=== PATIENT | female | born 1970 | race American Indian/Alaskan Native ===

== ENCOUNTER 2016-11-07 15:12 | Emergency (ER) | payer OTHER ==
[2016-11-07 15:29] VITALS: BP 156/82; PULSE 86; RESP 18; TEMP 98.3; O2SAT 100
--- NOTE | 2016-11-07 16:31 | ED PDOC ---
Upper Extremity Pain/Injury Time Seen by Provider: 11/07/16 16:22 Chief Complaint (Nursing): Upper Extremity Problem/Injury Chief Complaint (Provider): left UE History Per: Patient History/Exam Limitations: no limitations Additional Complaint(s): 46yo F in left sided arm pain x 1 week states she feels tingling sensation to arm made worse with ROM and with tingling sensation to hand made worse with moving the hand. pt denies acute injury, denies CP, SOB, back pain, denies dizziness. Past Medical History Reviewed: Historical Data, Nursing Documentation, Vital Signs Vital Signs: Last Vital Signs Temp 98.3 F 11/07/16 15:27 Pulse 86 11/07/16 15:27 Resp 18 11/07/16 15:27 BP 156/82 H 11/07/16 15:27 Pulse Ox 100 11/07/16 15:27 - Medical History PMH: Arthritis (knee), Diabetes, Chronic Pain (right knee for about 3 years) - Surgical History Surgical History: (x 2) - Family History Family History: States: No Known Family Hx - Home Medications Home Medications: Ambulatory Orders Medication Instructions Recorded Naproxen [Naprosyn] 500 mg PO Q12H #20 tab 03/24/15 Oxycodone HCl/Acetaminophen 1 tab PO Q8H #10 tab 03/24/15 [Percocet 325 mg-5 mg] Albuterol HFA [Ventolin HFA 90 2 puff IH Q4 PRN #1 inh 06/14/16 mcg/actuation (8 g)] Promethazine/Codeine 5 ml PO Q6 PRN #100 ml 06/14/16 [Phenergan/Codeine Oral Syrup] Azithromycin [Zithromax] 1 tab PO DAILY #6 tab 06/15/16 Cyclobenzaprine [Cyclobenzaprine 10 mg PO BID #14 tab 11/07/16 HCl] Ibuprofen [Motrin] 400 mg PO Q6 #30 tab 11/07/16 - Allergies Allergies/Adverse Reactions: Allergies Allergy/AdvReac Type Severity Reaction Status Date / Time No Known Allergies Allergy Verified 11/07/16 15:25 Review of Systems ROS Statement: Except As Marked, All Systems Reviewed And Found Negative Respiratory: Negative for: Cough, Shortness of Breath Gastrointestinal: Negative for: Nausea, Vomiting, Abdominal Pain Musculoskeletal: Positive for: Arm Pain, Hand Pain Physical Exam - Reviewed Nursing Documentation Reviewed: Yes Vital Signs Reviewed: Yes - Physical Exam Appears: Positive for: Well, Non-toxic, No Acute Distress Head Exam: Positive for: ATRAUMATIC, NORMAL INSPECTION, NORMOCEPHALIC Skin: Positive for: Normal Color, Warm, DRY Cardiovascular/Chest: Positive for: Regular Rate, Rhythm Respiratory: Positive for: CNT, Normal Breath Sounds Extremity: Positive for: Other (left arm: no AC joint tenderness neurovasc intact. FROM, negative spurlings test. good strength to UE. ) Neurologic/Psych: Positive for: Alert, Oriented - ECG O2 Sat by Pulse Oximetry: 100 Medical Decision Making Medical Decision Making: pt will be required to f/u with orthopedics surgeon for imaging pt Rx flexril and motrin and given sling and wrist splint for comfort. Disposition - Clinical Impression Clinical Impression: Arm pain - Patient ED Disposition Is Patient to be Admitted: No Counseled Patient/Family Regarding: Studies Performed, Diagnosis, Need For Followup, Rx Given - Disposition Disposition: Routine/Home Disposition Time: 16:35 Condition: STABLE Prescriptions: Cyclobenzaprine [Cyclobenzaprine HCl] 10 mg PO BID #14 tab Ibuprofen [Motrin] 400 mg PO Q6 #30 tab Instructions: Neck Exercises (GEN), Peripheral Neuropathy (ED)
--- NOTE | 2016-11-09 16:41 | CARD ---
APPROVED REPORT EKG Measurement Heart [id number] <Conclusion> Normal sinus rhythm Normal ECG
== END 2016-11-07 17:28 | disposition home or self-care (01) ==
LOC: H.ER 15:12
DX: M79.602 Pain in left arm (principal); G89.29 Other chronic pain; E11.9 Type 2 diabetes mellitus without complications; R20.2 Paresthesia of skin

== ENCOUNTER 2016-11-27 16:08 | Inpatient (IN) | payer OTHER ==
[2016-11-27] MEDS ORDERED: Sodium Chloride 0.9% 1,000 ML IV ONE (17:16)
--- NOTE | 2016-11-27 17:43 | RAD ---
HISTORY: cp COMPARISON: Comparison chest 06/14/2016. TECHNIQUE: Chest PA and lateral FINDINGS: LUNGS: No active pulmonary disease. PLEURA: No significant pleural effusion identified. No pneumothorax apparent. CARDIOVASCULAR: Normal. OSSEOUS STRUCTURES: Mild dextroscoliosis of the thoracic spine VISUALIZED UPPER ABDOMEN: Normal. OTHER FINDINGS: None. IMPRESSION: No active disease.
--- NOTE | 2016-11-27 17:50 | ED PDOC ---
HPI: Chest Pain Time Seen by Provider: 11/27/16 16:45 Chief Complaint (Nursing): Chest Pain History Per: Patient History/Exam Limitations: no limitations Onset/Duration Of Symptoms: Days (3), Gradual Severity: Mild Front/Back of Body, Lg (Color): 1 - pain Quality: Sharp Associated Symptoms: denies: Nausea, Dyspnea, Diaphoresis, Syncope Modifying Factors: None Exacerbating Factors: Deep Breathing Alleviating Factors: None Past Medical History Reviewed: Historical Data, Nursing Documentation, Vital Signs Vital Signs: Last Vital Signs Temp 99.8 F H 11/27/16 16:27 Pulse 118 H 11/27/16 16:27 Resp 18 11/27/16 16:27 BP 140/70 11/27/16 16:27 Pulse Ox 96 11/27/16 17:50 - Medical History PMH: Arthritis (knee), Diabetes, Chronic Pain (right knee for about 3 years) - Surgical History Surgical History: (x 2) - Family History Family History: States: Unknown Family Hx - Living Arrangements Living Arrangements: With Family - Social History Current smoker - smoking cessation education provided: No - Home Medications Home Medications: Ambulatory Orders Medication Instructions Recorded Naproxen [Naprosyn] 500 mg PO Q12H #20 tab 03/24/15 Oxycodone HCl/Acetaminophen 1 tab PO Q8H #10 tab 03/24/15 [Percocet 325 mg-5 mg] Albuterol HFA [Ventolin HFA 90 2 puff IH Q4 PRN #1 inh 06/14/16 mcg/actuation (8 g)] Promethazine/Codeine 5 ml PO Q6 PRN #100 ml 06/14/16 [Phenergan/Codeine Oral Syrup] Azithromycin [Zithromax] 1 tab PO DAILY #6 tab 06/15/16 Cyclobenzaprine [Cyclobenzaprine 10 mg PO BID #14 tab 11/07/16 HCl] Ibuprofen [Motrin] 400 mg PO Q6 #30 tab 11/07/16 - Allergies Allergies/Adverse Reactions: Allergies Allergy/AdvReac Type Severity Reaction Status Date / Time No Known Allergies Allergy Verified 11/27/16 16:26 Review of Systems ROS Statement: Except As Marked, All Systems Reviewed And Found Negative Constitutional: Negative for: Fever, Chills Cardiovascular: Positive for: Chest Pain. Negative for: Palpitations, Paroxysmal Noc. Dyspnea, Edema, Light Headedness Respiratory: Positive for: Pleuritic Pain. Negative for: Cough, Shortness of Breath, SOB with Exertion, Wheezing Gastrointestinal: Negative for: Nausea, Vomiting, Abdominal Pain, Diarrhea Genitourinary Female: Negative for: Dysuria, Frequency Neurological: Negative for: Weakness, Numbness Physical Exam - Reviewed Nursing Documentation Reviewed: Yes Vital Signs Reviewed: Yes - Physical Exam Appears: Positive for: Well, No Acute Distress Head Exam: Positive for: ATRAUMATIC, NORMAL INSPECTION, NORMOCEPHALIC Eye Exam: Positive for: Normal appearance, EOMI, PERRL Neck: Positive for: Normal, Painless ROM, Supple Cardiovascular/Chest: Positive for: Regular Rate, Rhythm. Negative for: Edema, Gallop Respiratory: Positive for: Normal Breath Sounds Gastrointestinal/Abdominal: Positive for: Normal Exam, Bowel Sounds, Soft. Negative for: Tenderness Back: Positive for: Normal Inspection. Negative for: L CVA Tenderness, R CVA Tenderness Extremity: Positive for: Normal ROM. 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 Negative for: Motor/Sensory Deficits - Laboratory Results Result Diagrams: 11/27/16 18:00 11/27/16 18:00 - ECG ECG: Positive for: Interpreted By Ut ECG Rhythm: Positive for: Normal QRS, Normal ST Segment, Sinus Tachycardia (113) , ST/T Changes Interpretation Of Abn EKG: rate of 113 no evidence of ischemia O2 Sat by Pulse Oximetry: 96 Pulse Ox Interpretation: Normal - Radiology X-Ray: Interpreted by Me X-Ray Interpretation: No Acute Disease Disposition - Clinical Impression Clinical Impression: Chest pain - Patient ED Disposition Is Patient to be Admitted: Transfer of Care - Disposition Disposition Time: 19:04 Condition: STABLE Patient Signed Over To: Fozia Woodson
[2016-11-27 18:13] LABS: BASO % 0.6 % (0.0-2.0); EOS # 0.1 K/uL (0.0-0.7); EOS % 1.3 % (0.0-4.0); HEMATOCRIT 40.6 % (34.0-47.0); LYMPH % 11.7 % (20.0-40.0); MEAN CELL VOLUME 93.1 fl (81.0-99.0); MEAN CORPUSCULAR HEMOGLOBIN 31.3 pg (27.0-31.0); MEAN CORPUSCULAR HGB CONC 33.6 g/dL (33.0-37.0); MONO # 0.7 K/uL (0.0-0.8); MONO % 8.1 % (0.0-10.0); NEUT # 6.7 K/uL (1.8-7.0); NEUT % 78.3 % (50.0-75.0); RED CELL DISTRIBUTION WIDTH 13.7 % (11.5-14.5); WHITE BLOOD COUNT 8.6 K/uL (4.8-10.8)
[2016-11-27 18:23] LABS: ALB/GLOB RATIO 1.2 (1.0-2.1); ALKALINE PHOSPHATASE 72 U/L (38-126); ALT/SGPT 46 U/L (9-52); AST/SGOT 33 U/L (14-36); BILIRUBIN,TOTAL 0.9 mg/dl (0.2-1.3); BLOOD UREA NITROGEN 11 mg/dl (7-17); CALCIUM 9.2 mg/dL (8.4-10.2); CARBON DIOXIDE 26 mmol/L (22-30); CHLORIDE 105 mmol/L (98-107); GFR AFRICAN-AMERICAN > 60; GLUCOSE,RANDOM 153 mg/dL (65-105); LIPASE 19 U/L (23-300); SODIUM 139 mmol/l (132-148); TOTAL PROTEIN 7.4 G/DL (6.3-8.2)
[2016-11-27 18:51] LABS: RBC URINE 3 /hpf (0-3); URINE BACTERIA FEW (<OCC); URINE BILIRUBIN NEGATIVE (NEGATIVE); URINE BLOOD SMALL (NEGATIVE); URINE COLOR YELLOW (YELLOW); URINE GLUCOSE (UA) NEG (Normal); URINE KETONE NEGATIVE (NEGATIVE); URINE LEUKOCYTE ESTERASE SMALL Leu/uL (Negative); URINE PROTEIN NEGATIVE (NEGATIVE); WBC URINE 32 /hpf (0-5)
--- NOTE | 2016-11-27 19:17 | ED PDOC ---
- Laboratory Results Result Diagrams: 11/27/16 18:00 11/27/16 18:00 - ECG O2 Sat by Pulse Oximetry: 96 (RA) Pulse Ox Interpretation: Normal Medical Decision Making Medical Decision Making: Time: 19:00 Patient is endorsed from Aj Altamirano MD, pending ED work up, ED re- assessment and final ED dispositon. On my evaluation pt is comfortable EXAM: CT Angiography Chest With Intravenous Contrast CLINICAL HISTORY: 46 years old, female; Pain; Chest pain; Left-sided chest pain; Patient HX: Left sharp pain; Pain worst when inspiration. Dm HTN. C-sectionx 2 / yrs ago; Additional info: Cp R/O pe TECHNIQUE: Axial computed tomographic angiography images of the chest with intravenous contrast using pulmonary embolism protocol. This CT exam was performed using one or more of the following dose reduction techniques: automated exposure control, adjustment of the mA and/or kV according to patient size, and/or use of iterative reconstruction technique. MIP reconstructed images were created and reviewed. Coronal and sagittal reformatted images were created and reviewed. CONTRAST: 98 mL of VISIPAQUE administered intravenously. COMPARISON: CR - CHEST TWO VIEWS (PA/LAT) 11/27/2016 5:05:03 PM FINDINGS: Limitations: Suboptimal timing of bolus. Motion artifact - mild. Pulmonary arteries: No definite pulmonary embolism. Aorta: No aneurysm. No dissection. Lungs: No consolidation. RLL calcified granuloma. Few pulmonary nodules, up to 0.3 cm. Pleural space: No significant effusion. No pneumothorax. Heart: No cardiomegaly. No significant pericardial effusion. Bones/joints: Degenerative changes and mild scoliosis of spine. No acute fracture. Soft tissues: Unremarkable. Lymph nodes: No pathologically enlarged lymph nodes. Upper abdomen: Small RIGHT diaphragmatic hernia containing fat. IMPRESSION: 1. No definite CT evidence of pulmonary embolism. 2. Pulmonary nodules. For low-risk patients, no follow-up is necessary. For high -risk patients (smoking history or other known risk factors) recommend CT at 12 months and if unchanged, no further follow-up. 3. Incidental/non-acute findings are described above. Thank you for allowing us to participate in the care of your patient. Dictated and Authenticated by: Tray Pride MD 11/27/2016 9:59 PM Eastern Time ([place] & [place]) On reeval, pt is tachy, LEFT CVA ttp, and febrile. UA demonstrates UTI. Will hospitalize for pyelonephritis. She reports urine is malodorous, otherwise no hematuria, dysuria, or frequency. NIURKA Johnson hospitalist. Scribe Attestation: Documented by Mckenzie Calvillo, acting as a scribe for Fozia Woodson MD. Provider Scribe Attestation: All medical record entries made by the Scribe were at my direction and personally dictated by me. I have reviewed the chart and agree that the record accurately reflects my personal performance of the history, physical exam, medical decision making, and the department course for this patient. I have also personally directed, reviewed, and agree with the discharge instructions and disposition. Disposition - Clinical Impression Clinical Impression: Chest pain - POA Present On Arrival: None - Disposition Disposition: Hospitalized as Observation Patient Disposition Time: 19:00 Condition: STABLE
[2016-11-27 20:05] LABS: PARTIAL THROMBOPLASTIN TIME 27.2 Seconds (25.6-37.1)
--- NOTE | 2016-11-27 21:59 | CT ---
EXAM: CT Angiography Chest With Intravenous Contrast CLINICAL HISTORY: 46 years old, female; Pain; Chest pain; Left-sided chest pain; Patient HX: Left sharp pain; Pain worst when inspiration. Dm HTN. C-sectionx 2 28/ yrs ago; Additional info: Cp R/O pe TECHNIQUE: Axial computed tomographic angiography images of the chest with intravenous contrast using pulmonary embolism protocol. This CT exam was performed using one or more of the following dose reduction techniques: automated exposure control, adjustment of the mA and/or kV according to patient size, and/or use of iterative reconstruction technique. MIP reconstructed images were created and reviewed. Coronal and sagittal reformatted images were created and reviewed. CONTRAST: 98 mL of VISIPAQUE administered intravenously. COMPARISON: CR - CHEST TWO VIEWS (PA/LAT) 11/27/2016 5:05:03 PM FINDINGS: Limitations: Suboptimal timing of bolus. Motion artifact - mild. Pulmonary arteries: No definite pulmonary embolism. Aorta: No aneurysm. No dissection. Lungs: No consolidation. RLL calcified granuloma. Few pulmonary nodules, up to 0.3 cm. Pleural space: No significant effusion. No pneumothorax. Heart: No cardiomegaly. No significant pericardial effusion. Bones/joints: Degenerative changes and mild scoliosis of spine. No acute fracture. Soft tissues: Unremarkable. Lymph nodes: No pathologically enlarged lymph nodes. Upper abdomen: Small RIGHT diaphragmatic hernia containing fat. IMPRESSION: 1. No definite CT evidence of pulmonary embolism. 2. Pulmonary nodules. For low-risk patients, no follow-up is necessary. For high-risk patients (smoking history or other known risk factors) recommend CT at 12 months and if unchanged, no further follow-up. 3. Incidental/non-acute findings are described above.
[2016-11-27] MEDS ORDERED: Sodium Chloride 0.9% 500 ML IV STA (22:42)
[2016-11-27 23:11] LABS: VENOUS BLOOD GAS BASE EXCESS -9.2 mmol/L (0.0-2.0); VENOUS BLOOD GAS PCO2 58 mmHg (40-60); VENOUS BLOOD PH 7.15 (7.32-7.43)
--- NOTE | 2016-11-28 01:15 | CT ---
EXAM: CT Abdomen and Pelvis Without Intravenous Contrast CLINICAL HISTORY: 46 years old, female; Pain; Abdominal pain; Localized; Left; Additional info: Left flank pain TECHNIQUE: Axial computed tomography images of the abdomen and pelvis without intravenous contrast. This CT exam was performed using one or more of the following dose reduction techniques: automated exposure control, adjustment of the mA and/or kV according to patient size, and/or use of iterative reconstruction technique. COMPARISON: No relevant prior studies available. FINDINGS: Limitations: Motion artifact - mild to moderate. Lower thorax: See chest CT report for additional details. ABDOMEN: Liver: Unremarkable. Gallbladder and bile ducts: No calcified stones. No ductal dilation. Pancreas: Unremarkable. No ductal dilation. Spleen: No splenomegaly. Adrenals: No mass. Kidneys and ureters: Contrast within renal collecting system. Contrast striations within LEFT kidney. No hydronephrosis. Stomach and bowel: No definite mural thickening. No obstruction. Appendix: Normal caliber. No inflammation. PELVIS: Bladder: Contrast within bladder. No stones. Reproductive: Unremarkable as visualized. ABDOMEN and PELVIS: Intraperitoneal space: No significant fluid collection. No free air. Bones/joints: No acute fracture. Soft tissues: Unremarkable. Vasculature: Unremarkable. No aneurysm. Lymph nodes: No pathologically enlarged lymph nodes. IMPRESSION: 1. Striations within LEFT kidney concerning for pyelonephritis. Correlate with urinalysis. 2. Incidental/non-acute findings are described above.
[2016-11-28 09:55] LABS: THYROID STIMULATING HORMONE 1.18 mIU/ML (0.46-4.68)
[2016-11-28] MEDS: cefTRIAXone 2 GM in Sodium Chloride 0.9% 100 ML IVPB SCH (10:04)
[2016-11-28] MEDS: Enoxaparin 40 mg Syringe SC SCH (10:05)
--- NOTE | 2016-11-28 22:02 | HP ---
CHIEF COMPLAINT: Chest pain and back pain. HISTORY OF PRESENT ILLNESS: This is a 46-year-old female, known case of diabetes, hypertension, arth ritis, who was feeling sick for 3 days and was having chest pain and upper back pain, so the patient was brought to Emergency Room and after evaluation was admitted for further management. REVIEW OF SYSTEMS: Positive for chest pain, upper back pain and some complaint. Review of sys tems otherwise is negative for headache, dizziness, syncope, loss of conscious, nausea, vomiting, amy rrhea, constipation, any new joint or extremity pain. Review of systems of all other organ systems i s unremarkable. PHYSICAL EXAMINATION: GENERAL: Well-built, well-nourished, obese female in no acute distress. VITAL SIGNS: Temperature 99.9, pulse 102, respirations 17, blood pressure 148/88. HEENT: Pupils reacting to light. No JVD, no thyromegaly, no lymphadenopathy, no nystagmus. Normocep halic, atraumatic skull. HEART: S1, S2 normal, regular. No significant murmur, gallop or rub is heard. LUNGS: Shows good bilateral air exchange. No rales or rhonchi. ABDOMEN: Soft, nontender, no organomegaly, no fluid. Bowel sounds are plus. EXTREMITIES: No edema, no calf swelling, no tenderness. No acute ischemia. CENTRAL NERVOUS SYSTEM: Essentially unchanged and there is no sign of any acute gross focal motor or sensory neurological deficit. DIAGNOSTIC DATA: Available diagnostic data reviewed. Chest CAT scan is negative. Urinalysis is con sistent with urinary tract infection. Sodium 139, potassium 4.0, chloride 105, bicarbonate 26, BUN 1 1, creatinine 0.8 . SMA-12 is unremarkable. Lipase level is 19. WBC 8.6, hemoglobin 13.6, hem atocrit 40.6, platelets 209. The patient had some costovertebral tenderness in the Emergency Room. ADMITTING IMPRESSION: Pyelonephritis, urinary tract infection, obesity, diabetes type 2, hypertensio n. PLAN: As ordered. Case and plan discussed with patient. Sim Johnson MD cc: [id number] TT: 11/28/2016 22:01:08 ln
--- NOTE | 2016-11-29 01:25 | CARD ---
APPROVED REPORT EKG Measurement Heart [id number] <Conclusion> Sinus tachycardia Possible Left atrial enlargement Borderline ECG
[2016-11-29 06:16] LABS: HEMATOCRIT 36.2 % (34.0-47.0); MEAN CELL VOLUME 91.8 fl (81.0-99.0); MEAN CORPUSCULAR HGB CONC 33.8 g/dL (33.0-37.0); RED CELL DISTRIBUTION WIDTH 13.1 % (11.5-14.5); WHITE BLOOD COUNT 5.1 K/uL (4.8-10.8)
[2016-11-29 06:21] LABS: ALB/GLOB RATIO 1.1 (1.0-2.1); ALKALINE PHOSPHATASE 81 U/L (38-126); ALT/SGPT 84 U/L (9-52); AST/SGOT 60 U/L (14-36); BILIRUBIN,TOTAL 0.3 mg/dl (0.2-1.3); BLOOD UREA NITROGEN 10 mg/dl (7-17); CALCIUM 8.6 mg/dL (8.4-10.2); CARBON DIOXIDE 22 mmol/L (22-30); CHLORIDE 108 mmol/L (98-107); GFR AFRICAN-AMERICAN > 60; GLUCOSE,RANDOM 111 mg/dL (65-105); SODIUM 137 mmol/l (132-148); TOTAL PROTEIN 6.6 G/DL (6.3-8.2)
[2016-11-29] MEDS: cefTRIAXone 2 GM in Sodium Chloride 0.9% 100 ML IVPB SCH (08:58)
[2016-11-29] MEDS: Enoxaparin 40 mg Syringe SC SCH (09:08)
--- NOTE | 2016-11-29 09:17 | PN ---
DATE: 11/29/2016 The patient seen and examined. Interim events noted. The patient feels okay. Abdominal and back pa in is slightly better. Urine still remains strong and odorous, but no burning urination. PHYSICAL EXAMINATION: GENERAL: The patient is in no acute distress. VITAL SIGNS: Stable. HEART: S1, S2 normal, regular. LUNGS: Good bilateral air exchange. ABDOMEN: Soft, nontender. EXTREMITIES: No edema, no calf swelling, no tenderness, no acute ischemia. Costovertebral tendernes s is present, but improved. CENTRAL NERVOUS SYSTEM: Essentially unchanged. DIAGNOSTIC DATA: Available reviewed. Overall, patient's general medical condition is stable and improving. PLAN: As ordered. Sim Johnson MD cc: [id number] TT: 11/29/2016 09:17:32 Confirmation # [id number] Dictation # [id number]
[2016-11-30 00:33] VITALS: RESP 20
[2016-11-30 07:26] LABS: HEMATOCRIT 34.7 % (34.0-47.0); MEAN CELL VOLUME 91.7 fl (81.0-99.0); MEAN CORPUSCULAR HEMOGLOBIN 30.8 pg (27.0-31.0); MEAN CORPUSCULAR HGB CONC 33.6 g/dL (33.0-37.0); RED CELL DISTRIBUTION WIDTH 13.1 % (11.5-14.5); WHITE BLOOD COUNT 4.7 K/uL (4.8-10.8)
[2016-11-30 07:44] LABS: BILIRUBIN,TOTAL 0.4 mg/dl (0.2-1.3); BLOOD UREA NITROGEN 6 mg/dl (7-17); CALCIUM 8.7 mg/dL (8.4-10.2); CARBON DIOXIDE 24 mmol/L (22-30); CHLORIDE 107 mmol/L (98-107); GFR AFRICAN-AMERICAN > 60; GLUCOSE,RANDOM 97 mg/dL (65-105); SODIUM 138 mmol/l (132-148); TOTAL PROTEIN 6.4 G/DL (6.3-8.2)
[2016-11-30 07:45] LABS: ALB/GLOB RATIO 1.1 (1.0-2.1); ALKALINE PHOSPHATASE 89 U/L (38-126); ALT/SGPT 102 U/L (9-52); AST/SGOT 59 U/L (14-36)
[2016-11-30 08:37] VITALS: BP 128/79; PULSE 75; TEMP 98.1; O2SAT 95
[2016-11-30] MEDS: Enoxaparin 40 mg Syringe SC SCH (09:27)
[2016-11-30] MEDS: cefTRIAXone 2 GM in Sodium Chloride 0.9% 100 ML IVPB SCH (09:28)
[2016-11-30 14:47] LABS: RBC URINE 2 /hpf (0-3); URINE BACTERIA RARE (<OCC); URINE BILIRUBIN NEGATIVE (NEGATIVE); URINE BLOOD NEGATIVE (NEGATIVE); URINE COLOR YELLOW (YELLOW); URINE GLUCOSE (UA) NEG (Normal); URINE KETONE NEGATIVE (NEGATIVE); URINE LEUKOCYTE ESTERASE NEG Leu/uL (Negative); URINE PROTEIN NEGATIVE (NEGATIVE); URINE UROBILINOGEN 0.2-1.0 mg/dL (0.2-1.0); WBC URINE 3 /hpf (0-5)
--- NOTE | 2016-11-30 16:19 | CP.PCM.PN ---
Subjective - Date & Time of Evaluation Date of Evaluation: 11/30/16 - Subjective Subjective: The patient seen and examined. Interim events noted. The patient feels okay. Abdominal and back pain is slightly better. Urinary symptoms improved, pain resolved. PHYSICAL EXAMINATION: GENERAL: The patient is in no acute distress. VITAL SIGNS : Stable. HEART: S1, S2 normal, regular. LUNGS: Good bilateral air exchange. ABDOMEN: Soft, nontender. EXTREMITIES: No edema, no calf swelling, no tenderness, no acute ischemia. Costovertebral tenderness is present, but improved. CENTRAL NERVOUS SYSTEM: Essentially unchanged. Available diagnostic data reviewed. Pt is medically stable, for possible d/c home today. dc plan d/w pt. Objective - Vital Signs/Intake and Output Vital Signs (last 24 hours): Temp Pulse Resp BP Pulse Ox 98.1 F 75 20 128/79 95 11/30/16 08:37 11/30/16 08:37 11/30/16 08:37 11/30/16 09:28 11/30/16 08:37 - Labs Labs: 11/30/16 06:50 11/30/16 06:50 PT 13.3 Seconds (9.8-13.1) H 11/27/16 18:00 INR 1.2 (0.9-1.2) 11/27/16 18:00 APTT 27.2 Seconds (25.6-37.1) 11/27/16 18:00
== END 2016-11-30 13:34 | disposition home or self-care (01) | DRG 690 ==
LOC: H.ER 16:08 → H.ERHOLD 22:41 → H.MEDSURG1 11-28 00:45 → OBSVTOIN 11-29 12:27
PROVIDERS: ADMIT Internal Medicine; ATTEND Internal Medicine
DX: N12 Tubulo-interstitial nephritis, not specified as acute or chronic (principal); I10 Essential (primary) hypertension; E11.9 Type 2 diabetes mellitus without complications; M17.9 Osteoarthritis of knee, unspecified; E66.9 Obesity, unspecified; Z68.34 Body mass index [BMI] 34.0-34.9, adult

== ENCOUNTER 2017-06-16 23:43 | Emergency (ER) | payer OTHER ==
[2017-06-17 00:10] VITALS: BP 149/80; PULSE 89; RESP 16; TEMP 98.5; O2SAT 97
[2017-06-17] MEDS ORDERED: Oxycodone/Acetaminophen 5/325 mg Tab PO STA (00:32)
[2017-06-17] MEDS ORDERED: Oxycodone/Acetaminophen 5/325 mg Tab ONE (00:52)
--- NOTE | 2017-06-17 00:53 | ED PDOC ---
HPI: Dental Pain/Injury Time Seen by Provider: 06/17/17 00:16 Chief Complaint (Nursing): Dental Pain Chief Complaint (Provider): Dental Pain History Per: Patient History/Exam Limitations: no limitations Onset/Duration Of Symptoms: Days Additional Complaint(s): 47 year old female presents to the ED complaining of dental pain and swelling on the left side of her face. Has had a dental abscess before. Reports she has not seen a dentist in a "long time". Denies fever and chills. PMD: none provided Past Medical History Reviewed: Historical Data, Nursing Documentation, Vital Signs Vital Signs: Last Vital Signs Temp 98.5 F 06/17/17 00:07 Pulse 89 06/17/17 00:07 Resp 16 06/17/17 00:07 BP 149/80 06/17/17 00:07 Pulse Ox 97 06/17/17 00:07 - Medical History PMH: Arthritis (knee), Diabetes, Chronic Pain (right knee for about 3 years) Denies: Chronic Kidney Disease - Surgical History Surgical History: (x 2) - Family History Family History: States: Unknown Family Hx - Home Medications Home Medications: Ambulatory Orders Medication Instructions Recorded Ciprofloxacin HCl [Cipro] 500 mg PO BID #20 tablet 11/30/16 Clindamycin [Cleocin] 300 mg PO TID 7 Days cap 06/17/17 Naproxen [Naprosyn] 500 mg PO Q6 #30 tablet 06/17/17 - Allergies Allergies/Adverse Reactions: Allergies Allergy/AdvReac Type Severity Reaction Status Date / Time No Known Allergies Allergy Verified 11/27/16 16:26 Review of Systems ROS Statement: Except As Marked, All Systems Reviewed And Found Negative ENT: Positive for: Mouth Pain (left ), Mouth Swelling (left) Physical Exam - Reviewed Nursing Documentation Reviewed: Yes Vital Signs Reviewed: Yes - Physical Exam Appears: Positive for: Well, Non-toxic, No Acute Distress ENT: Positive for: Other (Left upper molar has poor dentition with evidence of dental abscess) - ECG O2 Sat by Pulse Oximetry: 97 (RA) Pulse Ox Interpretation: Normal Medical Decision Making Medical Decision Making: Time: 00:32 Impression: dental abscess Initial Plan: --Cleocin 300 mg PO --Cleocin 300 mg PO --Motrin 600 mg PO --Percocet 1 tab Patient requires no further treatment in the ED at this time. Encouraged to follow up with dentist tomorrow. Return if symptoms persist or worsen. Scribe Attestation: Documented by Trini Bolaños, acting as a scribe for Sanjay Paniagua MD Provider Scribe Attestation: All medical record entries made by the Scribe were at my direction and personally dictated by me. I have reviewed the chart and agree that the record accurately reflects my personal performance of the history, physical exam, medical decision making, and the department course for this patient. I have also personally directed, reviewed, and agree with the discharge instructions and disposition. Disposition - Clinical Impression Clinical Impression: Dental abscess - Disposition Disposition: Routine/Home Disposition Time: 00:30 Condition: STABLE Additional Instructions: Please followup with a dentist tomorrow. Prescriptions: Clindamycin [Cleocin] 300 mg PO TID 7 Days cap Naproxen [Naprosyn] 500 mg PO Q6 #30 tablet Instructions: Dental Abscess (ED) Forms: [employer] ([place])
== END 2017-06-17 01:14 | disposition home or self-care (01) ==
LOC: H.ER 23:43
DX: K04.7 Periapical abscess without sinus (principal); E11.9 Type 2 diabetes mellitus without complications; G89.29 Other chronic pain